=== PATIENT | male | born 1960 | race Caucasian/White ===

== ENCOUNTER 2019-02-01 19:01 | Emergency (ER) | payer MEDICARE, OTHER ==
[~2019-02-01] VITALS: Ht 167.6 cm; Wt 74.8 kg
[~2019-02-01 19:01] MED LIST: ABILIFY15 MG ORAL; AMBIEN10 MG ORAL; AMLODIPINE BESY10 MG ORAL; ATIVAN1 MG ORAL; CHLORPROMAZINE25 MG PO; CHLORPROMAZINE50 MG PO; COLACE100 MG ORAL; DIPHENHYDRAMINE25 M1 ORAL; FERROUS SULFAT325 MG ORAL; FLUOXETINE HCL20 MG ORAL; LORATADINE10 M1 PO; NAMENDA10 MG ORAL; PRILOSEC20 MG ORAL; REMERON15 MG ORAL; SINEMET 25-1001 EAC1 ORAL; TRILEPTAL150 MG ORAL
--- NOTE | 2019-02-01 19:20 | NUR ---
ED Nurse Note: pt walked in c/o sorethroat x 4 days, denies cough nor fever at this time, will cont monitor. resp even and unlabored on RA, caregiver at the bedside.
[2019-02-01 19:21] VITALS: BP 121/79
--- NOTE | 2019-02-01 19:28 | Emergency Room Report ---
History of Present Illness General Chief Complaint: Sore Throat Source: Medical Record Present Illness HPI 58-year-old male with history of behavioral complains here with his caregiver throat and no other symptoms. According to the caregiver patient was disallowed to gain attention denying chest pain, shortness of breath, palpitation, abdominal pain, nausea vomiting vitals within normal limits. Patient is rating pain 10 out of 10 without radiation. Has not taken any medication according to patient himself for symptom relief. Denies recent travel and sick contact. Patient is on a lot of medication however his caregiver confirms that he is not taking any medication for heart related issues. Allergies: Coded Allergies: AMOXICILLIN (Verified Allergy, Unknown, 09/29/10) PENICILLINS (Verified Allergy, Unknown, 04/21/15) Patient History Past Medical History: see triage record Past Surgical History: unable to obtain Pertinent Family History: none Immunizations: UTD Reviewed Nursing Documentation: PMH: Agreed; PSxH: Agreed Nursing Documentation-PMH Past Medical History: No History, Except For Hx Cardiac Problems: Yes Hx Hypertension: Yes Hx Cancer: No Hx Gastrointestinal Problems: Yes Hx Neurological Problems: Yes - Hydrocephalus, Hx Parkinson's Disease: Yes Hx Seizures: Yes Hx Neurologic Surgery: Yes - craniotomy Review of Systems All Other Systems: negative except mentioned in HPI Physical Exam Vital Signs Date Time Temp Pulse Resp B/P (MAP) Pulse Ox O2 Delivery O2 Flow Rate FiO2 02/01/19 19:09 97.9 91 18 121/79 (93) 98 Room Air Sp02 EP Interpretation: reviewed, normal General Appearance: normal inspection, well appearing, no apparent distress, alert Head: normocephalic, atraumatic Eyes: bilateral eye normal inspection, bilateral eye PERRL ENT: hearing grossly normal, no angioedema, normal voice, TMs + canals normal, moist mucus membranes, pharyngeal erythema Neck: normal inspection, full range of motion, supple Respiratory: normal inspection, chest non-tender, lungs clear, normal breath sounds, no rhonchi, no wheezing Cardiovascular #1: normal inspection, regular rate, rhythm, no gallop, no murmur, normal capillary refill Gastrointestinal: normal inspection, soft Genitourinary: no CVA tenderness Musculoskeletal: normal inspection, back normal, digits/nails normal Neurologic: normal inspection, alert, oriented x3, responsive, clean up helper banquet III-XII nml as tested Psychiatric: normal inspection, judgement/insight normal Skin: no rash, palpation normal, normal color Lymphatic: normal inspection, no adenopathy Medical Decision Making PA Attestation All diagnoses and treatment plans were reviewed and discussed with my supervising physician Dr. Cagle Diagnostic Impression: Primary Impression: Pharyngitis ER Course 58-year-old male with history of behavioral complains here with his caregiver throat and no other symptoms. According to the caregiver patient was disallowed to gain attention denying chest pain, shortness of breath, palpitation, abdominal pain, nausea vomiting vitals within normal limits. Patient is rating pain 10 out of 10 without radiation. Has not taken any medication according to patient himself for symptom relief. Denies recent travel and sick contact. Patient is on a lot of medication however his caregiver confirms that he is not taking any medication for heart related issues. Ddx considered but are not limited to: strep pharyngitis, URI, tonsilitis, peritonsillar absacess, influneza Vital signs: are WNL, pt. is afebrile H&PE are most consistent with: Pharyngitis ORDERS: Azithromycin ED INTERVENTIONS: None required at this time. DISCHARGE: At this time pt. is stable for d/c to home. Will provide printed patient care instructions, and any necessary prescriptions. Care plan and follow up instructions have been discussed with the patient prior to discharge. I explained to the caregiver even though he believes that patient is making symptoms of attention he cannot just assume the emergency room the patient does not have an organic cause of his symptoms. Patient reports that he has to run it by his supervisor accounts receivable to see if he can take his pain medication and I explained to him that he needs to confirm with his primary doctor before starting this medicine Last Vital Signs Date Time Temp Pulse Resp B/P (MAP) Pulse Ox O2 Delivery O2 Flow Rate FiO2 02/01/19 19:21 97.9 91 18 121/79 98 Room Air Disposition: HOME, SELF-CARE Condition: Stable Scripts Azithromycin* (ZITHROMAX*) 250 Mg Tablet 250 MG ORAL DAILY, #6 TAB 0 Refills Take two tables once daily for 1 day, then one tablet once daily for 4 days. Prov: Eren Newsome 02/01/19 Patient Instructions: Pharyngitis, [id number] Additional Instructions: Take medication as directed follow-up with your primary care provider Eren Newsome Feb 01, 2019 19:28
[2019-02-01] MEDS ORDERED: ZITHROMAX250 MG ORAL (19:29)
--- NOTE | 2019-02-01 19:35 | NUR ---
ED Nurse Note: pt cleared to be d/c per ERMD, pt discharge and aftercare instruction provided w/ prescription, pt education done via discussion and handout, paperwork given to caregiver, advised pt to follow up with pcp or return to ed if changes in condition, vss, ambulatory w/ steady gait, left w/ all belongings accompanied by caregiver.
[2019-02-01 19:37] VITALS: BP 120/79
== END 2019-02-01 20:00 | disposition home or self-care (01) ==
LOC: EMR 19:54
DX: J06.9 Acute upper respiratory infection, unspecified (principal); I10 Essential (primary) hypertension; G91.9 Hydrocephalus, unspecified; Z98.890 Other specified postprocedural states; Z88.0 Allergy status to penicillin
CPT/HCPCS: 99281